=== PATIENT | female | born 1970 | race Caucasian/White ===

== ENCOUNTER 2016-08-15 17:00 | Outpatient (CLI) | payer MEDICAID ==
[~2016-08-15] VITALS: Ht 162.6 cm; Wt 78.6 kg
[~2016-08-15 17:00] MED LIST: PRENAT PO
[2016-08-15 17:17] VITALS: Ht 162.6 cm; Wt 78.6 kg
--- NOTE | 2016-08-15 17:44 | RADRPT ---
PROCEDURE: US biophysical profile. CLINICAL INDICATION: Decreased motion. TECHNIQUE: Multiple sonographic images of the uterus were obtained. The images were revi ewed on a PACS workstation. COMPARISON: 04/25/2016. FINDINGS: There is a single intrauterine gestation. There is no cardiac activity. This indicates demise. The position is cephalic. The placenta is posterior grade II with no abruption or previa. Maximum vertical pocket of amniotic fluid is 7.8 cm. Breathing Movement: 0 Gross Body Movement: 0 Tone: 0 Qualitative Amniotic Fluid Volume: 2 TOTAL: 2 IMPRESSION: 1. The biophysical score is 2/8. 2. demise. RPTAT: QQ .Patrick Urrutia MD, MD Date Time Electronically viewed and signed by .Patrick Urrutia MD, on 08/15/2016 17:44 .R/
--- NOTE | 2016-08-15 17:46 | RADRPT ---
PROCEDURE: US OB. CLINICAL INDICATION: Decreased motion. TECHNIQUE: Multiple sonographic images of the uterus were obtained. The images were revi ewed on a PACS workstation. COMPARISON: No prior studies are available for comparison. FINDINGS: There is a single intrauterine gestation. There is no heart motion. This indicates dem ise. Measurements were made in order to determine age. The results are as follows: BPD = 4.96 cm. HC = 17.84 cm. AC = 18.13 cm. FL = 3.63 cm. Estimated weight is 473 +/- 71 grams. LMP growth percentile is less than 3 %. Menstrual age by ultrasound dates is 21 weeks 3 days. Position is cephalic and placenta is posterior grade II. There is no evidence for an abruption or pl acenta previa. IMPRESSION: 1. demise at 21 weeks 3 days menstrual age by ultrasound dates. RPTAT: QQ .Patrick Urrutia MD, Date Time Electronically viewed and signed by .Patrick Urrutia MD, on 08/15/2016 17:46 .R/
[2016-08-15 18:23] LABS: BASOPHILS % 0.5 % (0.0-2.0); EOSINOPHILS # 0.1 10^3/ul (0.0-0.5); EOSINOPHILS % 1.2 % (0.0-7.0); HEMATOCRIT 37.8 % (37.0-47.0); HEMOGLOBIN 12.8 g/dl (12.0-16.0); LYMPHOCYTES # 2.4 10^3/ul (0.8-2.9); LYMPHOCYTES % 34.5 % (15.0-51.0); MEAN CORPUSCULAR HEMOGLOBIN 29.8 pg (29.0-33.0); MEAN CORPUSCULAR HGB CONC 33.8 g/dl (32.0-37.0); MEAN PLATELET VOLUME 9.2 fl (7.4-10.4); MONOCYTE # 0.4 10^3/ul (0.3-0.9); MONOCYTES % 6.2 % (0.0-11.0); NEUTROPHILS % 57.6 % (39.0-77.0); PLATELET COUNT 268 10^3/UL (140-440); RED CELL DISTRIBUTION WIDTH 12.9 % (11.5-14.5)
[2016-08-15 18:36] LABS: CONDITION 1; INR 0.95; PARTIAL THROMBOPLASTIN TIME 25.3 Sec (25.0-35.0); PROTIME 12.7 Sec (12.2-14.2)
[2016-08-15 18:40] LABS: ALBUMIN 3.4 g/dl (3.3-4.9)
[2016-08-15 18:41] LABS: POTASSIUM 3.5 mmol/L (3.5-5.1)
[2016-08-15 18:43] LABS: ALBUMIN/GLOBULIN RATIO 0.94; BILIRUBIN,INDIRECT 0.1 mg/dl (0-1.1); BILIRUBIN,TOTAL 0.1 mg/dl (0.2-1.3); CALCIUM 9.6 mg/dl (8.4-10.2); CREATININE 0.58 mg/dl (0.44-1.00)
--- NOTE | 2016-08-15 21:13 | TRIAGE ---
OB Triage Datetime Report Generated by CPN: 08/15/2016 21:13 Datetime: 08/15/2016 20:29 Stage of : OB Triage Datetime: 08/15/2016 20:00 Labor Evaluation Frequency: 0 Datetime: 08/15/2016 19:20 Assessment Type: Triage Maternal Assessment Level of Consciousness: Fully Conscious DTR's/Clonus: DTRs 2+; No Clonus Headache: Denies Blurred Vision: No Respiratory Effort: Unlabored; Regular Rhythm; Equal Expansion Breath Sounds, Left: Clear and Equal Breath Sounds, Right: Clear and Equal Nausea/Vomiting: Denies RUQ Epigastric Pain: Denies Lower Extremities Edema: None Degree: None Upper Extremities Edema: None Degree: None Facial Edema: None Fall Risk Assessment History of Falling: (0) No Secondary Diagnosis: (0) No Ambulatory Aid: (0) Bedrest/Nurse Assist IV Therapy: (0) No Gait: (0) Normal/Bedrest/Immobile Mental Status: (0) Oriented to Own Ability Fall Score: 0 Fall Risk Score Definition: No Risk: No action required Datetime: 08/15/2016 18:14 Labor Evaluation Frequency: RARE Monitor Mode: External Duration (sec)2399: 30-50 Quality: Mild Resting Tone [place]: Relaxed Contraction Comments: DENIES FEELING Comments: IUFD Pain Assessment Pain Scale: 0 Pain Presence: None/Denies Pain Type: N/A Pain Goal: 3 Pain Relief Measures: Comfort Measures Datetime: 08/15/2016 18:01 Stage of : OB Triage Datetime: 08/15/2016 17:30 Stage of : OB Triage Datetime: 08/15/2016 17:14 Stage of : OB Triage Assessment Type: Triage Maternal Assessment Level of Consciousness: Fully Conscious DTR's/Clonus: DTRs 2+; No Clonus Headache: Denies Blurred Vision: No Respiratory Effort: Unlabored; Regular Rhythm; Equal Expansion Breath Sounds, Left: Clear and Equal Breath Sounds, Right: Clear and Equal Nausea/Vomiting: Denies RUQ Epigastric Pain: Denies Lower Extremities Edema: None Degree: None Upper Extremities Edema: None Degree: None Facial Edema: None Temperature Route: Axillary Fall Risk Assessment History of Falling: (0) No Secondary Diagnosis: (0) No Ambulatory Aid: (0) Bedrest/Nurse Assist IV Therapy: (0) No Gait: (0) Normal/Bedrest/Immobile Mental Status: (0) Oriented to Own Ability Fall Score: 0 Fall Risk Score Definition: No Risk: No action required Labor Evaluation Frequency: 0 Monitor Mode: External Heart Rate FHR Baseline Rate: unable to locate fht, u/s ordered. states has not felt movement for 2 weeks Monitor Mode: External US Pain Assessment Pain Scale: 0 Pain Presence: None/Denies Pain Type: N/A Pain Goal: 3 Pain Relief Measures: Comfort Measures Datetime: 08/15/2016 17:12 Time of Arrival: 08/15/2016 16:50 EGA: 25.2 Arrived By: Ambulatory Arrived From: Office Chief Complaint: SENT FROM DR OFFICE, DFM/IUFD. PT STATES HAS NOT FELT MOVEMENT FOR 2 WEEKS. DENIES BLEEDING, LEAKING OR UC'S HX OF 2 PREVIOUS IUFD Movement: Absent Contractions: Denies/Absent Rupture of Membranes: Denies Vaginal Bleeding: None Vaginal Discharge: Denies Patient Complaints: None Initial Plan: U/S
== END 2016-08-15 20:44 | disposition home or self-care (01) ==
LOC: OBT 17:00 → L-D 17:01 → OBT 20:44
PROVIDERS: ATTEND Obstetrics & Gynecology
DX: O36.8120 Decreased fetal movements, second trimester, not applicable or unspecified (principal); O36.4XX0 Maternal care for intrauterine death, not applicable or unspecified; O09.522 Supervision of elderly multigravida, second trimester; Z3A.25 25 weeks gestation of pregnancy
CPT/HCPCS: 36415; 76815; 76818; 80053; 85025; 85384; 85610; 85730; Z7500; G0463

== ENCOUNTER 2016-08-17 17:40 | Inpatient (IN) | payer MEDICAID ==
--- NOTE | 2016-08-16 02:45 | PN ---
Date/Time of Note Date/Time of Note DATE: 08/16/16 TIME: 02:35 OB Subjective Subjective Subjective 46 year-old with SIUP at 36 6/7 wks presents for evaluation. she states baby had no FM in last 2 wks, us revealed no activity. She has her care with Dr. Meyer. She denies nausea, vomiting, shortness of breath, chest pain, and abdominal pain between contractions, headache, visual changes, vaginal bleeding or LOF. OB Objective Objective Objective General: Patient appears well, alert and oriented, NAD, appropriate mood and affect ABD: gravid, soft, non-tender. Back: No CVA tenderness (B/L) LE: No clubbing, cyanosis, edema, thigh or calf tenderness bilaterally FHT: None Contractions: None SVE: Closed OB Assessment/Plan Other plan: 46 Year-old with SIUP at 25 2/7 wks with IUFD. Treatment options with R /B/A discussed, she voiced understanding. She would like to go home tonight and have F/U with Dr Meyer - Symptoms and sign of labor, preeclampsia discussed with patient, she voiced understanding. All of her questions answered. Patient was discharged home in stable condition with the appropriate discharge instructions provided. I would like patient to have close follow-up with her primary Ob or outpatient clinic in 1-2 days or return to the ER for worsening symptoms or any other urgent concerns. TRACE AVALOS Aug 16, 2016 02:45
[~2016-08-17] VITALS: Ht 160 cm; Wt 78.6 kg
[2016-08-17 18:10] VITALS: Ht 160 cm; Wt 78.6 kg
[2016-08-17 18:11] VITALS: BP 148/87; PULSE 74; RESP 17
[2016-08-17] MEDS ORDERED: METHYLERGONOVINE 0.2 MG INJ IM PRN (18:30)
[2016-08-17] MEDS ORDERED: BUTORPHANOL 2 MG INJ IV PRN (18:30)
[2016-08-17] MEDS ORDERED: MISOPROSTOL 200 MCG TAB PR PRN (18:30)
[2016-08-17] MEDS ORDERED: IBUPROFEN 600 MG TAB PO PRN (18:30)
[2016-08-17] MEDS ORDERED: OXYTOCIN 30 UNITS/LR 500 ML IV PRN (18:30)
[2016-08-17] MEDS ORDERED: LIDOCAINE 1% (MPF) 30 ML INJ INJ PRN (18:30)
[2016-08-17] MEDS ORDERED: OXYTOCIN 30 UNITS/LR 500 ML IV SCH ×2 (18:30)
[2016-08-17] MEDS ORDERED: CARBOPROST 250 MCG INJ IM PRN (18:30)
[2016-08-17] MEDS: LACTATED RINGER'S 1,000 ML IV SCH (18:38)
[2016-08-17 18:59] LABS: BASOPHILS % 0.5 % (0.0-2.0); EOSINOPHILS # 0.1 10^3/ul (0.0-0.5); EOSINOPHILS % 1.2 % (0.0-7.0); HEMATOCRIT 37.5 % (37.0-47.0); HEMOGLOBIN 12.6 g/dl (12.0-16.0); LYMPHOCYTES # 2.3 10^3/ul (0.8-2.9); LYMPHOCYTES % 30.2 % (15.0-51.0); MEAN CORPUSCULAR HEMOGLOBIN 29.7 pg (29.0-33.0); MEAN CORPUSCULAR HGB CONC 33.6 g/dl (32.0-37.0); MEAN CORPUSCULAR VOLUME 88.5 fl (82.0-101.0); MEAN PLATELET VOLUME 9.5 fl (7.4-10.4); MONOCYTE # 0.5 10^3/ul (0.3-0.9); MONOCYTES % 6.8 % (0.0-11.0); NEUTROPHIL # 4.7 10^3/ul (1.6-7.5); NEUTROPHILS % 61.3 % (39.0-77.0); PLATELET COUNT 266 10^3/UL (140-440); RED BLOOD COUNT 4.24 10^6/ul (4.20-5.40); RED CELL DISTRIBUTION WIDTH 13.1 % (11.5-14.5); UNCORRECTED WBC 7.6 10^3/ul (4.8-10.8); WHITE BLOOD COUNT 7.6 10^3/ul (4.8-10.8)
--- NOTE | 2016-08-17 19:03 | RADRPT ---
PROCEDURE: Limited OB ultrasound CLINICAL INDICATION: demise. Evaluate position TECHNIQUE: Sonographic evaluation to assess the position was performed. Transabdominal imag ing of the gravid uterus was performed. COMPARISON: 08/15/2016 FINDINGS: Single intrauterine with demise is identified. The position is cephalic with a post erior placenta. IMPRESSION: 1. Cephalic presentation. RPTAT: PP .Yannick Gomez MD, MD Date Time Electronically viewed and signed by .Yannick Gomez MD, on 08/17/2016 19:03 .B/
[2016-08-17 19:07] LABS: INR 0.87; PROTIME 11.8 Sec (12.2-14.2); PT RATIO 0.9
[2016-08-17 19:15] LABS: CONDITION 1
[2016-08-17] MEDS ORDERED: DINOPROSTONE 10 MG VAG SUPP VAG ONE (22:00)
[2016-08-17] MEDS ORDERED: LACTATED RINGER'S 1,000 ML IV PRN (22:00)
[2016-08-18] MEDS: LACTATED RINGER'S 1,000 ML IV SCH ×3 (02:27→18:50)
--- NOTE | 2016-08-18 14:21 | HP ---
Date/Time of Note Date/Time of Note DATE: 08/18/16 TIME: 14:17 OB - History Hx of Present Free Text/Dictation admitted for induction of the labor because of demise Last Menstrual Period: Feb 10, 2016 Estimated Due Date: Nov 24, 2016 : 7 Para: 4 Spontaneous : 2 Care: Good Care Ultrasounds: Abnormal US findings (baby had trisomy 18 ) Obstetrical Complications: Other (abnormal genetics ) Medical Complications: None Past Family/Social History * Past Medical, Surgical, Family and Obstetric Histories reviewed from chart. Blood Type: O+ Rubella: immune RPR/VDRL: Negative GBS Status: Unknown HBsAG: Negative OB Admission Exam Vital Signs Vital Signs Vital Signs Date Time Temp Pulse Resp B/P Pulse Ox O2 Delivery O2 Flow Rate FiO2 08/17/16 18:11 98.1 74 17 148/87 Room Air Physical Exam HEENT: WNL Heart: Rhythm Normal Lungs: Clear, Equal Abdomen: WNL Extremities: Normal Reflexes: Normal Cervical Dilatation: None Effacement: 0% Station: Ballotable Membranes: Intact Contractions on Admission: None Last 72 hours Lab Results CBC & BMP 08/17/16 18:35 OB Assessment/Plan Reason for admission: induction of labor, IUFD Other Assessment: IUFD at 26 + weeks for induction of the labor Induction Method: per Misoprostol Protocol KATHERINE CHRISTIAN MD Aug 18, 2016 14:21
--- NOTE | 2016-08-18 14:22 | PN ---
Date/Time of Note Date/Time of Note DATE: 08/18/16 TIME: 14:21 OB Subjective Subjective Subjective no C/O UCs OB Objective Objective Objective VSS P/E: NL on EFM irregular UCs seen OB Assessment/Plan Reason for admission: induction of labor, IUFD Induction Method: per Misoprostol Protocol KATHERINE CHRISTIAN MD Aug 18, 2016 14:22
[2016-08-18] MEDS ORDERED: MISOPROSTOL 200 MCG TAB PO ONE (23:30)
[2016-08-19] MEDS: LACTATED RINGER'S 1,000 ML IV SCH (02:25)
--- NOTE | 2016-08-19 05:18 | LDN ---
Date/Time of Note Date/Time of Note DATE: 08/19/16 TIME: 05:15 Delivery Summary of an IUFD male fetus weighing 375 grams. Placenta Delivered: Spontaneously, Intact & Complete Meconium: none Perineum intact?: Yes Estimated blood loss: 150 Sponge & Needle done & correct: Yes All needle counts correct: Yes Any foreign bodies felt in the: No Problems: Delivery Information Sex Infant Sex: male Apgars 1 Minute: 0 5 Minute: 0 10 Minute: 0 Suctioning Nose & mouth suctioned at dread: No Delee suction performed: No Umbilical Cord Cord presentations: no nuchal cord Cord Blood was obtained: No Mother & Baby Disposition Disposition Mom & Baby to Maternity; Good: No Mom transferred to: Antepartum Baby to NICU: No TRESA MATTHEW MD Aug 19, 2016 05:18
[2016-08-19] MEDS ORDERED: OXYTOCIN 30 UNITS/LR 500 ML IV PRN (05:30)
[2016-08-19] MEDS ORDERED: MISOPROSTOL 200 MCG TAB PR PRN (05:30)
[2016-08-19] MEDS ORDERED: OXYCODONE/ASPIRIN (4.88/325) TAB PO PRN (05:30)
[2016-08-19] MEDS ORDERED: CARBOPROST 250 MCG INJ IM PRN (05:30)
[2016-08-19] MEDS ORDERED: METHYLERGONOVINE 0.2 MG INJ IM PRN (05:30)
[2016-08-19] MEDS ORDERED: IBUPROFEN 600 MG TAB PO SCH (06:00)
[2016-08-19] MEDS: LACTATED RINGER'S 1,000 ML IV* SCH ×2 (09:38→17:40)
[2016-08-19 12:38] LABS: RUBELLA ANTIBODY - IGG 2.72
--- NOTE | 2016-08-19 17:57 | DS ---
Date/Time of Note Date/Time of Note home next day DATE: 08/19/16 TIME: 17:56 Obstetrical Discharge Record Final Diagnosis Final Diagnosis: delivered Vaginal Delivery Obstetrical Delivery: Spontaneous Demise Demise: Antepartum Complications Induction: Yes Condition on Discharge Physical Assessment Last Vitals: see nurses notes Voiding: Yes Bowel Movement: Yes Breast: Soft, non-tender, Filling Fundus: Firm Abdomen and Incision: soft BS + Episiotomy: NA Calf Tenderness: No Patient Condition: Good KATHERINE CHRISTIAN MD Aug 19, 2016 17:57
--- NOTE | 2016-08-19 17:59 | PD.PPDC ---
DENTAL TECH Discharge Instruction Provider Information Physician Information 46 y/o female had demise and vaginal delivery of demise Diagnosis Final Diagnosis: S/P vaginal delivery Condition Patient Condition: Good Diet Diet: Resume Regular Diet Activity/Restrictions Activity: Normal Activity May Shower Restrictions: Nothing in the Vagina Return to Work or School: Sep 05, 2016 Follow-up Follow-up with Physician: 4, Week/Weeks Return to clinic for Comment: pelvic rest x 6 weeks KATHERINE CHRISTIAN MD Aug 19, 2016 17:59
[2016-08-19] MEDS ORDERED: IBUP-1542 PO (18:00)
== END 2016-08-19 21:00 | disposition home or self-care (01) | DRG 774 ==
LOC: L-D 17:40 → OBG 08-19 06:25 → EDSTATUS 11-26 17:40
PROVIDERS: ADMIT Obstetrics & Gynecology; ATTEND Obstetrics & Gynecology
PROC: 10E0XZZ Delivery of Products of Conception, External Approach (ICD-10-PCS; principal; 2016-08-19)
PROC: 3E033VJ Introduction of Other Hormone into Peripheral Vein, Percutaneous Approach (ICD-10-PCS; 2016-08-19)
DX: O60.12X0 Preterm labor second trimester with preterm delivery second trimester, not applicable or unspecified (principal); O14.92 Unspecified pre-eclampsia, second trimester; Z3A.26 26 weeks gestation of pregnancy; Z37.1 Single stillbirth; O09.522 Supervision of elderly multigravida, second trimester
CPT/HCPCS: 76815; 82962; 85025; 85610; 85730; 86592; 86762; 86900; 86901; 88307; J2590; J7120